=== PATIENT | female | born 1995 | race Caucasian/White ===

== ENCOUNTER → 2017-10-26 | Outpatient (CLI) | payer BC ==
--- NOTE | 2017-10-26 14:56 | RADIOLOGY IMAGING REPORT ---
FACILITY: [facility] - [place], [place] PATIENT NAME: Shanice Franco : 1995 MR: [id number] V: [id number] EXAM DATE: ORDERING PHYSICIAN: FRANCO SHERMAN TECHNOLOGIST: Location: [facility] - [place] Patient: Shanice Franco : 1995 Visit/Account:[id number] Date of Sevice: 10/26/2017 CT chest without contrast Indication: Right-sided pain and difficulty breathing. Kicked by horse in the posterior right ribs. Comparison: None available Technique: Axial CT images are obtained through the chest without administration of IV contrast. One of the following dose optimization techniques was utilized in the performance of this exam: Autom ated exposure control; adjustment of the mA and/or kV according to the patient's size; or use of an i terative reconstruction technique. Specific details can be referenced in the facility's radiology C T exam operational policy.Reformatted coronal and sagittal images were reviewed. Findings: Heart is normal size without pericardial effusion. The aorta shows no aneurysm. The pulmonary arterie s are grossly normal. There is no mediastinal hematoma and there is no pathologic mediastinal adenopathy seen. Lungs show no consolidations, pleural effusion or pneumothorax. The left lower lobe shows 3 ill-defin ed nodular type opacities the largest is in the superior posterior aspect measuring 1.8 x 1.7 cm. The inferior posterior left lower lobe shows 2 smaller nodular ill-defined opacities. No other interstit ial opacities. No discrete other nodules. Airways are clear. The bony structures show no acute fractures. No discrete or displaced rib fractures. Sternum appears intact. The vertebral bodies show no compression. No aggressive bony lesions. Chest wall shows no enl arged axillary lymph nodes or masses. Limited views of the upper abdomen are unremarkable. IMPRESSION: 1. No indication of traumatic injury. 2. Left lower lobe shows 3 ill-defined nodular type opacities. This could be secondary to early multi focal pneumonia, including atypical pneumonia. However suggest short interval follow-up to assess for clearing or other etiologies such as underlying parenchymal nodules. I called report to FRANCO SHERMAN at 10/26/2017 2:51 PM. Report Dictated By: Daron Wells at 10/26/2017 2:37 PM Report E-Signed By: Daron Wells at 10/26/2017 2:51 PM WSN:[email or web address]
== END ==
LOC: CT 14:08
PROVIDERS: ATTEND Family Medicine
DX: R91.8 Other nonspecific abnormal finding of lung field (principal)
CPT/HCPCS: 71250

== ENCOUNTER → 2018-01-06 | Outpatient (CLI) | payer BC ==
[2018-01-06 14:47] LABS: PLATELET COUNT, AUTOMATED 184 K/uL (150-450)
== END ==
LOC: LAB 14:13
PROVIDERS: ATTEND Nurse Practitioner Family
DX: R10.12 Left upper quadrant pain (principal); R19.7 Diarrhea, unspecified
CPT/HCPCS: 36415; 82040; 82247; 82310; 82374; 82435; 82565; 82947; 84075; 84132; 84155; 84295; 84443; 84450; 84460; 84520; 85025; 86677; 87045; 87077; 87177; 87186

== ENCOUNTER → 2018-01-20 | Outpatient (REF) | payer BC ==
[2018-01-20 11:37] LABS: PLATELET COUNT, AUTOMATED 131 K/uL (150-450)
== END ==
PROVIDERS: ATTEND Nurse Practitioner Family
DX: R50.9 Fever, unspecified (principal); M25.50 Pain in unspecified joint
CPT/HCPCS: 82040; 82247; 82310; 82374; 82435; 82565; 82947; 84075; 84132; 84155; 84295; 84450; 84460; 84520; 85025